=== PATIENT | male | born 1995 | race Caucasian/White ===

== ENCOUNTER 2020-09-27 22:27 | Emergency (ER) | payer OTHER, BC ==
[2020-09-27] MEDS ORDERED: Sodium Chloride 0.9% 10 ML Syringe FLUSH PRN (22:52)
[2020-09-27] MEDS ORDERED: Sodium Chloride 0.9% 2.5 ML Syringe FLUSH PRN (22:52)
[2020-09-27] MEDS ORDERED: Dexamethasone 10 MG/ML SDV IVPUSH ONE (22:53)
[2020-09-27] MEDS ORDERED: Ketorolac 30 MG/ML SDV IVPUSH ONE (22:53)
[2020-09-27] MEDS ORDERED: Sodium Chloride 0.9% 1,000 ML IV ONE ×2 (22:53→23:57)
[2020-09-27] MEDS ORDERED: Famotidine 20 MG Tab PO ONE (22:54)
--- NOTE | 2020-09-27 22:54 | EDM.PDOC ---
ED HPI GENERAL MEDICAL PROBLEM - General Chief Complaint: General Stated Complaint: FEVER Time Seen by Provider: 09/27/20 22:31 - History of Present Illness INITIAL COMMENTS - FREE TEXT/NARRATIVE: Patient is an otherwise well 25-year-old male presenting with 6 hours of diffuse myalgias sore throat body aches and fever some significant nausea and diminished appetite but no vomiting. Some mild epigastric abdominal pain as well. No neck pain or stiffness. Multiple other family members also have a febrile illness. Symptoms constant gradually worsening T-max at home was 102 improved some with Tylenol. 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 [No Known Home Meds] 09/27/20 [History] Past Medical History - Past Health History Medical/Surgical History: Denies Medical/Surgical History HEENT History: Reports: None Cardiovascular History: Reports: None Respiratory History: Reports: Asthma Gastrointestinal History: Reports: None Genitourinary History: Reports: None Musculoskeletal History: Reports: None Neurological History: Reports: None Psychiatric History: Reports: None Endocrine/Metabolic History: Reports: None Hematologic History: Reports: None Immunologic History: Reports: None Oncologic (Cancer) History: Reports: None Dermatologic History: Reports: None - Infectious Disease History Infectious Disease History: Reports: None - Past Surgical History Head Surgeries/Procedures: Reports: None Social & Family History - Family History Family Medical History: No Pertinent Family History - Tobacco Use Tobacco Use Status *Q: Never Tobacco User - Caffeine Use Caffeine Use: Reports: None - Alcohol Use Days Per Week of Alcohol Use: 1 Number of Drinks Per Day: 1 Total Drinks Per Week: 1 - Recreational Drug Use Recreational Drug Use: No ED ROS GENERAL - Review of Systems Review Of Systems: See Below Free Text/Narrative/Comment: General: Per HPI Skin: No rash. Eyes: No vision problems. ENT: Per HPI Neck: No neck stiffness. Respiratory: No shortness of breath. Cardiac: No chest pain. Gastrointestinal: Per HPI Urinary: No dysuria. Musculoskeletal: Per HPI Neurologic: Per HPI ED EXAM, GENERAL - Physical Exam Exam: See Below Free Text/Narrative:: General Appearance: No acute distress, appears comfortable Skin: No rash HEENT: Normocephalic/atraumatic, sclera anicteric, mucous membranes moist, significant posterior oropharyngeal erythema but no clear exudate no submental or sublingual swelling no trismus uvula midline Neck: Normal range of motion, no meningismus Chest and Lungs: Bilateral breath sounds, clear to auscultation Cardiovascular: Mildly tachycardic rate regular rhythm intact distal perfusion Abdomen: Soft, non-tender Back: Normal Musculoskeletal: No edema or tenderness Neurologic: Awake, alert, no obvious deficits, moving all extremities Psychiatric: Appropriate, cooperative Course - Vital Signs Last Recorded V/S: Last Vital Signs Temp 98.0 F 09/27/20 22:37 Pulse 107 H 09/28/20 00:21 Resp 13 09/28/20 00:21 BP 141/79 H 09/28/20 00:21 Pulse Ox 97 09/28/20 00:21 - Orders/Labs/Meds Orders: Active Orders 24 hr Category Date Time Status Sodium Chloride 0.9% [Normal Saline] 1,000 ml Med 09/27/20 23:57 Active IV .Bolus Sodium Chloride 0.9% [Saline Flush] Med 09/27/20 22:52 Active 10 ml FLUSH ASDIRECTED PRN Sodium Chloride 0.9% [Saline Flush] Med 09/27/20 22:52 Active 2.5 ml FLUSH ASDIRECTED PRN Saline Lock Insert [OM.PC] Stat Oth 09/27/20 22:53 Ordered Medication Orders Sodium Chloride (Normal Saline) 1,000 mls @ 999 mls/hr IV .Bolus ONE Stop: 09/28/20 00:57 Last Admin: 09/28/20 00:03 Dose: 999 mls/hr Documented by: CARISA Sodium Chloride (Sodium Chloride 0.9% 10 Ml Syringe) 10 ml FLUSH ASDIRECTED PRN PRN Reason: Keep Vein Open Sodium Chloride (Sodium Chloride 0.9% 2.5 Ml Syringe) 2.5 ml FLUSH ASDIRECTED PRN PRN Reason: Keep Vein Open Labs: Laboratory Tests 09/27/20 09/27/20 09/27/20 Range/Units 23:05 23:05 23:05 WBC 7.97 (4.0-11.0) K/uL RBC 4.75 (4.50-5.90) M/uL Hgb 14.1 (13.0-17.0) g/dL Hct 40.7 (38.0-50.0) % MCV 85.7 (80.0-98.0) fL MCH 29.7 (27.0-32.0) pg MCHC 34.6 (31.0-37.0) g/dL RDW Std Deviation 42.3 (28.0-62.0) fl RDW Coeff of Graham 14 (11.0-15.0) % Plt Count 255 (150-400) K/uL MPV 8.60 (7.40-12.00) fL Neut % (Auto) 84.4 H (48.0-80.0) % Lymph % (Auto) 5.8 L (16.0-40.0) % [place] % (Auto) 9.4 (0.0-15.0) % Eos % (Auto) 0.3 (0.0-7.0) % Baso % (Auto) 0.1 (0.0-1.5) % Neut # (Auto) 6.7 H (1.4-5.7) K/uL Lymph # (Auto) 0.5 L (0.6-2.4) K/uL [place] # (Auto) 0.8 (0.0-0.8) K/uL Eos # (Auto) 0.0 (0.0-0.7) K/uL Baso # (Auto) 0.0 (0.0-0.1) K/uL Nucleated RBC % 0.0 /100WBC Nucleated RBCs # 0 K/uL Sodium 137 (136-148) mmol/L Potassium 3.9 (3.5-5.1) mmol/L Chloride 100 (98-107) mmol/L Carbon Dioxide 27.8 (21.0-32.0) mmol/L BUN 11 (7.0-18.0) mg/dL Creatinine 0.8 (0.8-1.3) mg/dL Est Cr Clr Drug Dosing 134.27 mL/min Estimated GFR (MDRD) > 60.0 ml/min Glucose 110 H (74-106) mg/dL Calcium 8.9 (8.5-10.1) mg/dL Total Bilirubin 0.6 (0.2-1.0) mg/dL AST 24 (15-37) IU/L ALT 38 (14-63) IU/L Alkaline Phosphatase 69 (46-116) U/L Total Protein 7.6 (6.4-8.2) g/dL Albumin 4.2 (3.4-5.0) g/dL Globulin 3.4 (2.6-4.0) g/dL Albumin/Globulin Ratio 1.2 (0.9-1.6) SARS-CoV-2 RNA (ANNABELLA) NEGATIVE (NEGATIVE) Group A Strep (PCR) (NOT DETECT) 09/27/20 Range/Units 23:05 WBC (4.0-11.0) K/uL RBC (4.50-5.90) M/uL Hgb (13.0-17.0) g/dL Hct (38.0-50.0) % MCV (80.0-98.0) fL MCH (27.0-32.0) pg MCHC (31.0-37.0) g/dL RDW Std Deviation (28.0-62.0) fl RDW Coeff of Graham (11.0-15.0) % Plt Count (150-400) K/uL MPV (7.40-12.00) fL Neut % (Auto) (48.0-80.0) % Lymph % (Auto) (16.0-40.0) % [place] % (Auto) (0.0-15.0) % Eos % (Auto) (0.0-7.0) % Baso % (Auto) (0.0-1.5) % Neut # (Auto) (1.4-5.7) K/uL Lymph # (Auto) (0.6-2.4) K/uL [place] # (Auto) (0.0-0.8) K/uL Eos # (Auto) (0.0-0.7) K/uL Baso # (Auto) (0.0-0.1) K/uL Nucleated RBC % /100WBC Nucleated RBCs # K/uL Sodium (136-148) mmol/L Potassium (3.5-5.1) mmol/L Chloride (98-107) mmol/L Carbon Dioxide (21.0-32.0) mmol/L BUN (7.0-18.0) mg/dL Creatinine (0.8-1.3) mg/dL Est Cr Clr Drug Dosing mL/min Estimated GFR (MDRD) ml/min Glucose (74-106) mg/dL Calcium (8.5-10.1) mg/dL Total Bilirubin (0.2-1.0) mg/dL AST (15-37) IU/L ALT (14-63) IU/L Alkaline Phosphatase (46-116) U/L Total Protein (6.4-8.2) g/dL Albumin (3.4-5.0) g/dL Globulin (2.6-4.0) g/dL Albumin/Globulin Ratio (0.9-1.6) SARS-CoV-2 RNA (ANNABELLA) (NEGATIVE) Group A Strep (PCR) NOT DETECTED (NOT DETECT) Meds: Medications Generic Name Dose Route Start Last Admin Trade Name Bandarq PRN Reason Stop Dose Admin Sodium Chloride 1,000 mls @ 999 mls/hr 09/27/20 23:57 09/28/20 00:03 Normal Saline IV 09/28/20 00:57 999 mls/hr .Bolus ONE Administration Sodium Chloride 10 ml 09/27/20 22:52 Sodium Chloride 0.9% 10 Ml Syringe FLUSH ASDIRECTED PRN Keep Vein Open Sodium Chloride 2.5 ml 09/27/20 22:52 Sodium Chloride 0.9% 2.5 Ml Syringe FLUSH ASDIRECTED PRN Keep Vein Open Discontinued Medications Generic Name Dose Route Start Last Admin Trade Name Freq PRN Reason Stop Dose Admin Dexamethasone 10 mg 09/27/20 22:53 09/27/20 23:13 Dexamethasone 10 Mg/Ml Sdv IVPUSH 09/27/20 22:54 10 mg ONETIME ONE Administration Diphenhydramine HCl 25 mg 09/27/20 23:57 09/28/20 00:03 Diphenhydramine 50 Mg/Ml Sdv IVPUSH 09/27/20 23:58 25 mg ONETIME ONE Administration Famotidine 20 mg 09/27/20 22:54 09/27/20 23:17 Famotidine 20 Mg Tab PO 09/27/20 22:55 20 mg ONETIME ONE Administration Sodium Chloride 1,000 mls @ 999 mls/hr 09/27/20 22:53 09/27/20 23:09 Normal Saline IV 09/27/20 23:53 999 mls/hr .Bolus ONE Administration Ketorolac Tromethamine 30 mg 09/27/20 22:53 09/27/20 23:15 Ketorolac 30 Mg/Ml Sdv IVPUSH 09/27/20 22:54 30 mg ONETIME ONE Administration Metoclopramide HCl 10 mg 09/27/20 23:57 09/28/20 00:06 Metoclopramide 10 Mg/2 Ml Sdv IVPUSH 09/27/20 23:58 10 mg ONETIME ONE Administration Departure - Departure Time of Disposition: 00:25 Disposition: Home, Self-Care 01 Condition: Good Clinical Impression: Viral syndrome - Discharge Information *PRESCRIPTION DRUG MONITORING PROGRAM REVIEWED*: Not Applicable *COPY OF PRESCRIPTION DRUG MONITORING REPORT IN PATIENT JOVI: Not Applicable Instructions: Viral Illness, Adult Referrals: Louis Sykes MD [Primary Care Provider] - 1 Week Forms: ED Department Discharge Additional Instructions: Your labs today were good. Your strep and Covid test were negative. You likely have another viral infection that should run its course over a total of 7 to 10 days. Please drink plenty of fluids and take Tylenol or ibuprofen to manage your fever and your other symptoms. If you develop severe neck stiffness severe headache or any other symptoms that concern you please call your doctor or return to the ER. The following information is given to patients seen in the emergency department who are being discharged to home. This information is to outline your options for follow-up care. We provide all patients seen in our emergency department with a follow-up referral. The need for follow-up, as well as the timing and circumstances, are variable depending upon the specifics of your emergency department visit. If you don't have a primary care physician on staff, we will provide you with a referral. We always advise you to contact your personal physician following an emergency department visit to inform them of the circumstance of the visit and for follow-up with them and/or the need for any referrals to a consulting specialist. The emergency department will also refer you to a specialist when appropriate. This referral assures that you have the opportunity for follow-up care with a specialist. All of these measure are taken in an effort to provide you with optimal care, which includes your follow-up. Under all circumstances we always encourage you to contact your private ramandeep trejo who remains a resource for coordinating your care. When calling for follow-up care, please make the office aware that this follow-up is from your recent emergency room visit. If for any reason you are refused follow-up, please contact the [facility] Emergency Department at and asked to speak to the emergency department charge nurse. Sepsis Event Note (ED) - Evaluation Sepsis Screening Result: Possible Sepsis Risk - Focused Exam Vital Signs: Vital Signs Temp Pulse Resp BP Pulse Ox 09/28/20 00:21 107 H 13 141/79 H 97 09/27/20 22:37 98.0 F 128 H 18 133/66 98 - My Orders Last 24 Hours: My Active Orders 09/27/20 22:52 Sodium Chloride 0.9% [Saline Flush] 10 ml FLUSH ASDIRECTED PRN Sodium Chloride 0.9% [Saline Flush] 2.5 ml FLUSH ASDIRECTED PRN 09/27/20 22:53 Saline Lock Insert [OM.PC] Stat 09/27/20 23:57 Sodium Chloride 0.9% [Normal Saline] 1,000 ml IV .Bolus - Assessment/Plan Last 24 Hours: My Active Orders 09/27/20 22:52 Sodium Chloride 0.9% [Saline Flush] 10 ml FLUSH ASDIRECTED PRN Sodium Chloride 0.9% [Saline Flush] 2.5 ml FLUSH ASDIRECTED PRN 09/27/20 22:53 Saline Lock Insert [OM.PC] Stat 09/27/20 23:57 Sodium Chloride 0.9% [Normal Saline] 1,000 ml IV .Bolus Assessment:: 25-year-old male presenting with signs and symptoms that are most consistent with a viral syndrome. Patient is fully vaccinated against Covid but given delta variant Covid swab will be sent. No cough no chest pain or shortness of breath nothing suggest pneumonia. Strep is a consideration as well. Patient dehydrated given tachycardia IV fluid given as well as Toradol and Decadron. Patient afebrile here. No findings of meningitis or encephalitis no findings of deep space infection of the head or neck. 0015: Labs are normal strep and Covid negative. Patient's heart rate and symptoms are improving. Continues to have a moderate headache and given Benadryl and Reglan. If patient symptoms continue to improve will likely be stable for discharge.
[2020-09-27 23:37] LABS: BLOOD UREA NITROGEN,BUN 11 mg/dL (7.0-18.0); CARBON DIOXIDE,CO2 27.8 mmol/L (21.0-32.0); CHLORIDE,CL 100 mmol/L (98-107); GLUCOSE RANDOM 110 mg/dL (74-106); POTASSIUM,K 3.9 mmol/L (3.5-5.1); SODIUM,NA 137 mmol/L (136-148)
[2020-09-27] MEDS ORDERED: diphenhydrAMINE 50 MG/ML SDV IVPUSH ONE (23:57)
[2020-09-27] MEDS ORDERED: Metoclopramide 10 MG/2 ML SDV IVPUSH ONE (23:57)
== END 2020-09-28 00:35 | disposition home or self-care (01) ==
LOC: MW.ED 22:27
DX: B34.9 Viral infection, unspecified (principal); J45.909 Unspecified asthma, uncomplicated; R00.0 Tachycardia, unspecified; Z20.822 Contact with and (suspected) exposure to COVID-19
CPT/HCPCS: 36415; 80053; 85025; 87635; 87651; 96374; 96375; 99283; A9270; J1100; J1200; J1885; J2765; J7030; U0002